=== PATIENT | male | born 1985 | race African-American/Black ===

== ENCOUNTER 2017-08-26 15:28 | Emergency (ER) | payer MEDICAID ==
[~2017-08-26] VITALS: Ht 180.3 cm; Wt 90.0 kg
[~2017-08-26 15:28] MED LIST: BACTRIM DS1 TAB OR; BACTRIM1 TAB; CEPHALEXIN500 MG OR; COGENTIN0.5 MG OR; DOXYCYC MONO100 MG OR; HALDOL5 MG OR; HYDROXYZ PAM100 MG PO; LITHIUM CARB300 M2 PO; LITHIUM CARB300 MG PO; MOTRIN800 MG PO; NAPROSYN500 MG PO; NO MEDS; PERCOCET 5/325M1 TAB OR; RISPERDAL1 M1 PO; ROCEPHIN 2250 MG/VIA IM; VISTARIL50 MG OR; ZOFRAN ODT4 MG OR
[2017-08-26 16:52] LABS: HEMATOCRIT 48.2 % (39.0-50.0); HEMOGLOBIN 16.3 g/dl (14.0-18.0); IMMATURE GRANULOCYTES 0.7 % (0.0-1.0); MEAN CELL VOLUME 83.2 fL CALC (80.0-100.0); MEAN CORPUSCULAR HGB 28.2 pG CALC (26.0-32.0); MEAN CORPUSCULAR HGB CONC 33.8 g/L CALC (32.0-36.0); NEUT# 10.01 thou/uL (1.82-7.42); RED BLOOD COUNT 5.79 mill/uL (4.70-6.10); RED CELL DISTRI WIDTH 13.1 % (11.5-15.5)
[2017-08-26 16:54] LABS: URINE BILIRUBIN - DIPSTICK NEGATIVE (NEGATIVE); URINE BLOOD DIPSTICK NEGATIVE (NEGATIVE); URINE COLOR YELLOW; URINE GLUCOSE - DIPSTICK NEGATIVE (NEGATIVE); URINE KETONE NEGATIVE (NEGATIVE); URINE LEUK ESTERASE NEGATIVE (NEGATIVE); URINE NITRITE - DIPSTICK NEGATIVE (Negative); URINE PROTEIN - DIPSTICK TRACE mg/dL (NEG-TRACE); URINE SPECIFIC GRAVITY 1.015; URINE UROBILINOGEN - DIPSTICK 0.2 E.U./dL (0.2)
[2017-08-26 16:57] LABS: COCAINE POSITIVE (NEGATIVE); URINE CLARITY CLEAR
[2017-08-26 16:58] LABS: BARBITURATES NEGATIVE (NEGATIVE); METHADONE NEGATIVE (NEGATIVE); OXCYCODONE NEGATIVE (NEGATIVE); TETRAHYDROCANNABIONOL NEGATIVE (NEGATIVE); TRICYLIC ANTIDEPRESSANTS NEGATIVE (NEGATIVE)
[2017-08-26 17:04] LABS: ALBUMIN 4.5 g/dL (3.2-5.0); ALKALINE PHOSPHATASE 65 u/l (38-126); ANION GAP 17 (6-22 (CALC)); BILIRUBIN, TOTAL 0.5 mg/dL (0.0-1.4); BUN 14 mg/dL (9-20); BUN/CREATININE RATIO 10 (12-20 (CALC)); CARBON DIOXIDE 27 mmol/l (22-30); CHLORIDE 104 mmol/l (95-108); CREATININE 1.4 mg/dL (0.7-1.3); GFR 60 ML/MIN (>=60 (CALC)); GFR FOR AFR.AMER. > 60 ML/MIN (>=60 (CALC)); POTASSIUM 4.6 mmol/l (3.5-5.1); SGOT/AST 16 u/l (17-59); SGPT/ALT 28 u/l (21-72); SODIUM 144 mmol/l (137-146); TOTAL PROTEIN 8.1 g/dL (6.3-8.2)
[2017-08-26 17:40] VITALS: BP 108/72
== END 2017-08-26 17:52 | disposition home or self-care (01) | DRG 897 ==
LOC: ED 15:28
DX: F16.10 Hallucinogen abuse, uncomplicated (principal); F17.210 Nicotine dependence, cigarettes, uncomplicated

== ENCOUNTER 2019-10-25 16:28 | Emergency (ER) | payer OTHER ==
[~2019-10-25] VITALS: Ht 180.3 cm; Wt 84.0 kg
[2019-10-25 19:34] VITALS: BP 102/61
== END 2019-10-25 19:43 | disposition home or self-care (01) ==
LOC: ED 16:28
DX: F16.10 Hallucinogen abuse, uncomplicated (principal); F17.210 Nicotine dependence, cigarettes, uncomplicated